=== PATIENT | male | born 1975 | race Caucasian/White ===

== ENCOUNTER 2025-01-15 22:50 | Emergency (ER) | payer OTHER, SELFPAY ==
[2025-01-15 23:03] VITALS: BP 147/89; PULSE 93; RESP 18; TEMP 36.2; O2SAT 100
--- NOTE | 2025-01-15 23:13 | ED.ALLEREA ---
HPI - Allergic Reaction General Chief complaint: Allergic Reaction Stated complaint: allergic reaction Time Seen by Provider: 01/15/25 23:13 Focused HPI: This is a 49 year old male that presents to the ER for allergic reaction. Reports he woke up this morning with some itching of his face. Reports it has gradually worsened throughout the day. He woke up from sleeping feeling like his face was burning. No known exposures GENERAL: Well-appearing, well-nourished, and in no acute distress. HEAD: Normocephalic, atraumatic. Redness of the face, swelling around the eyelids CHEST: Clear to auscultation. ?No respiratory distress. HEART: Regular rate and rhythm.? NEURO: ?Alert and oriented x3. Patient screened in triage and initial orders placed.? ?Additional care and disposition to be based upon?diagnostic testing and treatment. Related Data Allergies Allergy/AdvReac Type Severity Reaction Status Date / Time Penicillins Allergy Unknown Unknown Verified 01/15/25 23:06 Review of Systems Review of Systems: All systems reviewed & are unremarkable except as noted in HPI and below Exam Narrative: GENERAL: Well-appearing, well-nourished, and in no acute distress. HEAD: Normocephalic, atraumatic. EYES: EOMI. ENT: Nares clear, no rhinorrhea or epistaxis. Mucous membranes moist. Oropharynx without tonsillar hypertrophy exudate or other lesions. CHEST: Clear to auscultation. No respiratory distress. No wheezes rales or rhonchi HEART: Regular rate and rhythm. No murmur heard. Normal peripheral pulses. EXTREMITIES: Normal range of motion. No edema. SKIN: Warm, dry. Redness of the face, swelling around the eyelids NEURO: No focal deficits. Alert and oriented x3. PSYCH: Normal mood and affect Course Vital Signs Vital signs: Vital Signs Temperature 97.2 F L 01/15/25 23:03 Pulse Rate 93 01/15/25 23:03 Respiratory Rate 18 01/15/25 23:03 Blood Pressure 147/89 H 01/15/25 23:03 Pulse Oximetry 100 01/15/25 23:03 Oxygen Delivery Room Air 01/15/25 23:03 Temperature 97.2 F L 01/15/25 23:03 Pulse Rate 93 01/15/25 23:03 Respiratory Rate 18 01/15/25 23:03 Blood Pressure 147/89 H 01/15/25 23:03 Pulse Oximetry 100 01/15/25 23:03 Oxygen Delivery Room Air 01/15/25 23:03 MDM - Allergic Reaction MDM Narrative Medical decision making narrative: Patient presents the emergency department for itching, redness, swelling around the eyes and face. No swelling of the mouth or throat. No difficulty breathing or trouble swallowing. He was given Solu-Medrol, Pepcid, Benadryl with some improvement. Will be continued on steroid taper, antihistamines. Instructed to follow-up with his primary provider. He was given warnings to return to the ER Differential Diagnosis Differential diagnosis: Likely allergic reaction, angioedema, contact dermatitis, adverse reaction to drug, viral enanthem and urticaria Critical Care Time Critical Care Time Critical Care Time: No Discharge Plan Discharge Clinical Impression: Allergic reaction Qualifiers: Encounter type: initial encounter Qualified Code(s): T78.40XA - Allergy, unspecified, initial encounter Patient Disposition: Home Condition: Improved Instructions: General Allergic Reaction (ED) Additional Instructions: Return to the emergency department if you experience difficulty breathing, trouble swallowing, or any other symptoms that are concerning to you Take a Zyrtec and Claritin daily. (You may take Zyrtec twice daily if needed). Take steroid taper (Prednisone) as prescribed. Benadryl as needed for severe itching. Use non-scented/sensitive face wash/lotion Follow-up with your primary care doctor Patient Language: Kiswahili Prescriptions: New prednisone 10 mg tablet 10 mg PO DAILY Qty: 45 0RF Rx Instructions: 5 tabs daily for 3 days, 4 tabs daily for 3 days, 3 tabs daily for 3 days, 2 tabs daily for 3 days, 1 tab daily for 3 days Follow-up/Referrals: Yordan,MD Claus [Primary Care Provider] -
[2025-01-15] MEDS: FAMOTIDINE 20 MG/2 ML VIAL IV PUSH (23:27)
--- OUTSIDE RECORDS SUMMARY | 2025-01-15 23:46 | XMS_ITS | Data Portability ---
Author Organization [facility] DORCAS[facility]arda Jefferson Womack Address [address] [place] [place] [address] Care Team Providers Care Electronics Processor Name Role Phone SHAE FARR Primary Care Provider [phone] Assessment Encounter Date Assessment Date Assessment LastModified by Organization Details LastModified Time 06/03/2024 06/03/2024 Kenalog 40 mg IM. Prednisone tapering dose over the next week. Blood work to be obtained. Obtain colonoscopy report follow up 6 months sooner if rash does not go away [email or web address] Not available 06/07/2024 20:24:44 10/06/2024 10/06/2024 orthopedic referral. as an aside he was is taking testosterone from the private pay clinic and they are doing all of the monitoring Not available 10/12/2024 12:58:57 Plan of Treatment Reminders Order Date Submit Date Provider Last Modified By Organization Details Last Modified Time Details Appointments ANY 15 2025 09:00A Galo Farr MD Not available Not available Not available Lab PSA, total, serum or plasma 2023 024 ED [facility], [place] [facility] [facility], [address], [place], [address], 06/04/2024 13:12:27 lipid panel, serum 2023 024 ED [facility], [address] [facility], [address], [place], [address], 06/04/2024 13:12:22 CMP, serum or plasma 2023 024 ED [facility], [address] [facility] [address], [address], [place], [address], 06/04/2024 13:12:24 CBC w/ auto diff 2023 024 [place] [facility], [address] [facility], [address], [place], [address], 06/04/2024 13:12:25 Referral orthopedi c surgeon referral - No imaging on file please call pt to set up apt thank you. 2024 chintan Bennett MD, [address], [address], [place], [address], 12/31/2024 14:29:47 Procedures None recorded. Surgeries None recorded. Imaging None recorded. Medication Orders prednison e 20 mg tablet 2023 [email or web address] [facility] #[id number], [address] [facility], [place], [address], 06/03/2024 13:06:38 Kenalog 40 mg/mL suspensio n for injection 2023 024 [email or web address] [facility] #[id number], [address] [facility], [place], [address], 06/03/2024 16:39:48 Patient TargetsNo targets recorded. Patient Instructions Encounter Date Encounter Id Patient Instructions Last Modified By Organization Details Last Modified Time 10/06/2024 [id number] A healthy lifestyle: care instructions [email or web address] Not available 10/06/2024 17:54:10 Reason for Referral Orthopedic Surgeon Referral for Pain of left shoulder joint No imaging on file please call pt to set up apt thank you. Referring Physician: Shae Farr, Internal Medicine, Encounter Date: 10/06/2024 Referring Physician: Shae Farr, Internal Medicine, Encounter Date: 01/14/2025 Results Created Date Observation Date Name Description Value Unit Range Abnormal Flag Note LastModifiedBy Organization Detail LastModifiedTime 06/03/20 24 06/04/2024 LIPID PANEL cholesterol, total 212 mg/dL 100-19 9 above high normal Not Available [facility] ([facility]) [address] [facility] [place], [address], 06/04/2024 13:12:22 06/03/20 24 06/04/2024 LIPID PANEL triglyceride s 76 mg/dL 0-149 Not Available [facility] ([facility]) [address] [facility] [place], [address], 06/04/2024 13:12:22 06/03/20 24 06/04/2024 LIPID PANEL HDL cholesterol 54 mg/dL >39 Not Available [facility] ([facility]) [address] [facility] [place], [address], 06/04/2024 13:12:22 06/03/20 24 06/04/2024 LIPID PANEL VLDL cholesterol booker 14 mg/dL 5-40 Not Available [facility] ([facility]) [address] [facility] [place], [address], 06/04/2024 13:12:22 06/03/20 24 06/04/2024 LIPID PANEL LDL chol calc ([facility]) 144 mg/dL 0-99 above high normal Not Available [facility] ([facility]) [address] [facility] [place], [address], 06/04/2024 13:12:22 06/03/20 24 06/04/2024 COMP. METAB OLIC PANEL (14) glucose 88 mg/dL 70-99 Not Available [facility] ([facility]) [address] [facility] [place], [address], 06/04/2024 13:12:23 06/03/20 24 06/04/2024 COMP. METAB OLIC PANEL (14) BUN 11 mg/dL 6-24 Not Available [facility] ([facility]) [address] [place], [address], 06/04/2024 13:12:23 06/03/20 24 06/04/2024 COMP. METAB OLIC PANEL (14) creatinine 1.31 mg/dL 0.76-1 .27 above high normal Not Available [facility] ([facility]) [address] [facility], [place], [address], 06/04/2024 13:12:23 06/03/20 24 06/04/2024 COMP. METAB OLIC PANEL (14) eGFR 67 mL/mi n/1.7 3 >59 Not Available [facility] ([facility]) [address] [facility], [place], [address], 06/04/2024 13:12:23 06/03/20 24 06/04/2024 COMP. METAB OLIC PANEL (14) BUN/creatini ne ratio 8 9-20 below low normal Not Available [facility] ([facility]) [address] [facility], [place], [address], 06/04/2024 13:12:23 06/03/20 24 06/04/2024 COMP. METAB OLIC PANEL (14) sodium 140 mmol/ L 134-14 4 Not Available [facility] ([facility]) [address] [facility], [place], [address], 06/04/2024 13:12:23 06/03/20 24 06/04/2024 COMP. METAB OLIC PANEL (14) potassium 4.6 mmol/ L 3.5-5. 2 Not Available [facility] ([facility]) [address] [facility], [place], [address], 06/04/2024 13:12:23 06/03/20 24 06/04/2024 COMP. METAB OLIC PANEL (14) chloride 103 mmol/ L 96-106 Not Available [facility] ([facility]) [address] [facility], [place], [address], 06/04/2024 13:12:23 06/03/20 24 06/04/2024 COMP. METAB OLIC PANEL (14) carbon dioxide, total 21 mmol/ L 20-29 Not Available [facility] ([facility]) [address] [facility], [place], [address], 06/04/2024 13:12:23 06/03/20 24 06/04/2024 COMP. METAB OLIC PANEL (14) calcium 9.3 mg/dL 8.7-10 .2 Not Available [facility] ([facility]) [address] [place], [address], 06/04/2024 13:12:23 06/03/20 24 06/04/2024 COMP. METAB OLIC PANEL (14) protein, total 6.9 g/dL 6.0-8. 5 Not Available [facility] ([facility]) [address] [place], [address], 06/04/2024 13:12:23 06/03/20 24 06/04/2024 COMP. METAB OLIC PANEL (14) albumin 4.4 g/dL 4.1-5. 1 Not Available [facility] ([facility]) [address] [place], [address], 06/04/2024 13:12:23 06/03/20 24 06/04/2024 COMP. METAB OLIC PANEL (14) globulin, total 2.5 g/dL 1.5-4. 5 Not Available [facility] ([facility]) [address] [place], [address], 06/04/2024 13:12:23 06/03/20 24 06/04/2024 COMP. METAB OLIC PANEL (14) bilirubin, total 0.9 mg/dL 0.0-1. 2 Not Available [facility] ([facility]) [address] [place], [address], 06/04/2024 13:12:23 06/03/20 24 06/04/2024 COMP. METAB OLIC PANEL (14) alkaline phosphatase 70 IU/L 44-121 Not Available [facility] ([facility]) [address] [place], [address], 06/04/2024 13:12:23 06/03/20 24 06/04/2024 COMP. METAB OLIC PANEL (14) AST (SGOT) 27 IU/L 0-40 Not Available [facility] ([facility]) [address] [place], [address], 06/04/2024 13:12:23 06/03/20 24 06/04/2024 COMP. METAB OLIC PANEL (14) ALT (SGPT) 38 IU/L 0-44 Not Available [facility] ([facility]) [address] [place], [address], 06/04/2024 13:12:23 06/03/20 24 06/04/2024 CBC WITH DIFFE RENTI AL/PL ATELE T WBC 4.6 x10e3 /uL 3.4-10 .8 Nikki ified by repea t krzysztof sis Eff ectiv e Decem chantel 2023 profi [id number] WBC will be made* * non-o rdera ble as a stand -jian e order code. Not Available [facility] ([facility]) [address] [facility], [place], [address], 06/04/2024 13:12:25 06/03/20 24 06/04/2024 CBC WITH DIFFE RENTI AL/PL ATELE T RBC 6.49 x10e6 /uL 4.14-5 .80 above high normal Not Available [facility] ([facility]) [address] [place], [address], 06/04/2024 13:12:25 06/03/20 24 06/04/2024 CBC WITH DIFFE RENTI AL/PL ATELE T hemoglobin 20.3 g/dL 13.0-1 7.7 alert high Remov al of plasm a from EDTA tube will resul t in spuri ously eleva ailyn CBC resul ts. Redra w and repea t if resul ts do not corre late with patie nt's clini booker condi tion. Not Available [facility] ([facility]) [address] [facility], [place], [address], 06/04/2024 13:12:25 06/03/20 24 06/04/2024 CBC WITH DIFFE RENTI AL/PL ATELE T hematocrit 59.6 % 37.5-5 1.0 above high normal Not Available [facility] ([facility]) [address] [facility], [place], [address], 06/04/2024 13:12:25 06/03/20 24 06/04/2024 CBC WITH DIFFE RENTI AL/PL ATELE T MCV 92 fL 79-97 Not Available [facility] ([facility]) [address] [facility], [place], [address], 06/04/2024 13:12:25 06/03/20 24 06/04/2024 CBC WITH DIFFE RENTI AL/PL ATELE T MCH 31.3 pg 26.6-3 3.0 Not Available [facility] ([facility]) [address] [facility], [place], [address], 06/04/2024 13:12:25 06/03/20 24 06/04/2024 CBC WITH DIFFE RENTI AL/PL ATELE T MCHC 34.1 g/dL 31.5-3 5.7 Not Available [facility] ([facility]) [address] [place], [address], 06/04/2024 13:12:25 06/03/20 24 06/04/2024 CBC WITH DIFFE RENTI AL/PL ATELE T RDW 12.9 % 11.6-1 5.4 Not Available [facility] ([facility]) [address] [place], [address], 06/04/2024 13:12:25 06/03/20 24 06/04/2024 CBC WITH DIFFE RENTI AL/PL ATELE T platelets 256 x10e3 /uL 150-45 0 Not Available [facility] ([facility]) [address] [facility] [address], [place], [address], 06/04/2024 13:12:25 06/03/20 24 06/04/2024 CBC WITH DIFFE RENTI AL/PL ATELE T neutrophils 54 % notest ab. Not Available [facility] ([facility]) [address] [facility], [place], [address], 06/04/2024 13:12:25 06/03/20 24 06/04/2024 CBC WITH DIFFE RENTI AL/PL ATELE T lymphs 30 % notest ab. Not Available [facility] ([facility]) [address] [facility], [place], [address], 06/04/2024 13:12:25 06/03/20 24 06/04/2024 CBC WITH DIFFE RENTI AL/PL ATELE T monocytes 11 % notest ab. Not Available [facility] ([facility]) [address] [facility], [place], [address], 06/04/2024 13:12:25 06/03/20 24 06/04/2024 CBC WITH DIFFE RENTI AL/PL ATELE T eos 4 % notest ab. Not Available [facility] ([facility]) [address] [facility], [place], [address], 06/04/2024 13:12:25 06/03/20 24 06/04/2024 CBC WITH DIFFE RENTI AL/PL ATELE T basos 1 % notest ab. Not Available [facility] ([facility]) [address] [facility], [place], [address], 06/04/2024 13:12:25 06/03/20 24 06/04/2024 CBC WITH DIFFE RENTI AL/PL ATELE T neutrophils (absolute) 2.4 x10e3 /uL 1.4-7. 0 Not Available [facility] ([facility]) [address] [facility], [place], [address], 06/04/2024 13:12:25 06/03/20 24 06/04/2024 CBC WITH DIFFE RENTI AL/PL ATELE T lymphs (absolute) 1.4 x10e3 /uL 0.7-3. 1 Not Available [facility] ([facility]) [address] [facility], [place], [address], 06/04/2024 13:12:25 06/03/20 24 06/04/2024 CBC WITH DIFFE RENTI AL/PL ATELE T monocytes(ab solute) 0.5 x10e3 /uL 0.1-0. 9 Not Available [facility] ([facility]) [address] [facility], [place], [address], 06/04/2024 13:12:25 06/03/20 24 06/04/2024 CBC WITH DIFFE RENTI AL/PL ATELE T eos (absolute) 0.2 x10e3 /uL 0.0-0. 4 Not Available [facility] ([facility]) [address] [facility], [place], [address], 06/04/2024 13:12:25 06/03/20 24 06/04/2024 CBC WITH DIFFE RENTI AL/PL ATELE T baso (absolute) 0.0 x10e3 /uL 0.0-0. 2 Not Available [facility] ([facility]) [address] [facility], [place], [address], 06/04/2024 13:12:25 06/03/20 24 06/04/2024 CBC WITH DIFFE RENTI AL/PL ATELE T immature granulocytes 0 % notest ab. Not Available [facility] ([facility]) [address] [facility], [place], [address], 06/04/2024 13:12:25 06/03/20 24 06/04/2024 CBC WITH DIFFE RENTI AL/PL ATELE T immature grans (abs) 0.0 x10e3 /uL 0.0-0. 1 Not Available [facility] ([facility]) [address] [facility], [place], [address], 06/04/2024 13:12:25 06/03/20 24 06/04/2024 PROST ATE-S PECIF IC AG prostate specific Ag 2.5 NG/mL 0.0-4. 0 Dylon ECLIA metho dolog y. Accor ding to the Ameri can [employer] g[employer] iatio n, Serum PSA shoul d decre ase and remai n at undet ectab le level s after radic al prost atect lg. The AUA defin es bioch emica l recur rence as an initi al PSA value 0.2 ng/mL or great er follo wed by a subse quent confi rmato ry PSA value 0.2 ng/mL or great er. Value s obtai keshawn with diffe rent assay metho ds or kits canno t be used inter levin eably . Resul ts canno t be inter prete d as absol three affiliated evide nce of the prese nce or absen ce of gloria sosa se. Not Available [facility] ([facility]) [address] [facility], [place], [address], 06/04/2024 13:12:26 06/09/20 24 06/10/2024 CBC WITH DIFFE RENTI AL/PL ATELE T WBC 9.3 x10e3 /uL 3.4-10 .8 Not Available [facility] ([facility]) [address] [facility], [place], [address], 06/10/2024 06:16:26 06/09/20 24 06/10/2024 CBC WITH DIFFE RENTI AL/PL ATELE T RBC 6.26 x10e6 /uL 4.14-5 .80 above high normal Not Available [facility] ([facility]) [address] [facility], [place], [address], 06/10/2024 06:16:26 06/09/20 24 06/10/2024 CBC WITH DIFFE RENTI AL/PL ATELE T hemoglobin 19.1 g/dL 13.0-1 7.7 above high normal Not Available [facility] ([facility]) [address] [place], [address], 06/10/2024 06:16:26 06/09/20 24 06/10/2024 CBC WITH DIFFE RENTI AL/PL ATELE T hematocrit 58.1 % 37.5-5 1.0 above high normal Not Available [facility] ([facility]) [address] [place], [address], 06/10/2024 06:16:26 06/09/20 24 06/10/2024 CBC WITH DIFFE RENTI AL/PL ATELE T MCV 93 fL 79-97 Not Available [facility] ([facility]) [address] [place], [address], 06/10/2024 06:16:26 06/09/20 24 06/10/2024 CBC WITH DIFFE RENTI AL/PL ATELE T MCH 30.5 pg 26.6-3 3.0 Not Available [facility] ([facility]) [address] [place], [address], 06/10/2024 06:16:26 06/09/20 24 06/10/2024 CBC WITH DIFFE RENTI AL/PL ATELE T MCHC 32.9 g/dL 31.5-3 5.7 Not Available [facility] ([facility]) [address] [place], [address], 06/10/2024 06:16:26 06/09/20 24 06/10/2024 CBC WITH DIFFE RENTI AL/PL ATELE T RDW 12.6 % 11.6-1 5.4 Not Available [facility] ([facility]) [address] [place], [address], 06/10/2024 06:16:26 06/09/20 24 06/10/2024 CBC WITH DIFFE RENTI AL/PL ATELE T platelets 277 x10e3 /uL 150-45 0 Not Available [facility] ([facility]) [address] [facility], [place], [address], 06/10/2024 06:16:26 06/09/20 24 06/10/2024 CBC WITH DIFFE RENTI AL/PL ATELE T neutrophils 70 % notest ab. Not Available [facility] ([facility]) [address] [facility], [place], [address], 06/10/2024 06:16:26 06/09/20 24 06/10/2024 CBC WITH DIFFE RENTI AL/PL ATELE T lymphs 20 % notest ab. Not Available [facility] ([facility]) [address] [facility], [place], [address], 06/10/2024 06:16:26 06/09/20 24 06/10/2024 CBC WITH DIFFE RENTI AL/PL ATELE T monocytes 7 % notest ab. Not Available [facility] ([facility]) [address] [facility], [place], [address], 06/10/2024 06:16:26 06/09/20 24 06/10/2024 CBC WITH DIFFE RENTI AL/PL ATELE T eos 1 % notest ab. Not Available [facility] ([facility]) [address] [facility], [place], [address], 06/10/2024 06:16:26 06/09/20 24 06/10/2024 CBC WITH DIFFE RENTI AL/PL ATELE T basos 0 % notest ab. Not Available [facility] ([facility]) [address] [facility], [place], [address], 06/10/2024 06:16:26 06/09/20 24 06/10/2024 CBC WITH DIFFE RENTI AL/PL ATELE T neutrophils (absolute) 6.6 x10e3 /uL 1.4-7. 0 Not Available [facility] ([facility]) [address] [facility], [place], [address], 06/10/2024 06:16:26 06/09/20 24 06/10/2024 CBC WITH DIFFE RENTI AL/PL ATELE T lymphs (absolute) 1.9 x10e3 /uL 0.7-3. 1 Not Available [facility] ([facility]) [address] [facility], [place], [address], 06/10/2024 06:16:26 06/09/20 24 06/10/2024 CBC WITH DIFFE RENTI AL/PL ATELE T monocytes(ab solute) 0.6 x10e3 /uL 0.1-0. 9 Not Available [facility] ([facility]) [address] [facility], [place], [address], 06/10/2024 06:16:26 06/09/20 24 06/10/2024 CBC WITH DIFFE RENTI AL/PL ATELE T eos (absolute) 0.1 x10e3 /uL 0.0-0. 4 Not Available [facility] ([facility]) [address] [facility], [place], [address], 06/10/2024 06:16:26 06/09/20 24 06/10/2024 CBC WITH DIFFE RENTI AL/PL ATELE T baso (absolute) 0.0 x10e3 /uL 0.0-0. 2 Not Available [facility] ([facility]) [address] [place], [address], 06/10/2024 06:16:26 06/09/20 24 06/10/2024 CBC WITH DIFFE RENTI AL/PL ATELE T immature granulocytes 2 % notest ab. Not Available [facility] ([facility]) [address] [place], [address], 06/10/2024 06:16:26 06/09/20 24 06/10/2024 CBC WITH DIFFE RENTI AL/PL ATELE T immature grans (abs) 0.2 x10e3 /uL 0.0-0. 1 above high normal (An eleva ailyn perce ntage of Immat ure Granu locyt es has not been found to be clini jack signi fican t as a sole clini booker predi ctor of disea se. Does NOT inclu de bands or blast cells . Pregn daja assoc iated physi ologi booker leuko cytos is may also show incre ased immat ure granu locyt es witho ut clini booker signi fican ce.) Not Available [facility] ([facility]) [address] [facility], [place], [address], 06/10/2024 06:16:26 06/23/20 24 06/24/2024 CBC WITH DIFFE RENTI AL/PL ATELE T WBC 5.4 x10e3 /uL 3.4-10 .8 Not Available [facility] ([facility]) [address] [facility], [place], [address], 06/24/2024 07:09:29 06/23/20 24 06/24/2024 CBC WITH DIFFE RENTI AL/PL ATELE T RBC 6.41 x10e6 /uL 4.14-5 .80 above high normal Not Available [facility] ([facility]) [address] [facility], [place], [address], 06/24/2024 07:09:29 06/23/20 24 06/24/2024 CBC WITH DIFFE RENTI AL/PL ATELE T hemoglobin 19.9 g/dL 13.0-1 7.7 above high normal Nikki ified by repea t krzysztof sis Remov al of plasm a from EDTA tube will resul t in spuri ously eleva ailyn CBC resul ts. Redra w and repea t if resul ts do not corre late with patie nt's clini booker condi tion. Not Available [facility] ([facility]) [address] [facility], [place], [address], 06/24/2024 07:09:29 06/23/20 24 06/24/2024 CBC WITH DIFFE RENTI AL/PL ATELE T hematocrit 58.9 % 37.5-5 1.0 above high normal Not Available [facility] ([facility]) [address] [facility], [place], [address], 06/24/2024 07:09:29 06/23/20 24 06/24/2024 CBC WITH DIFFE RENTI AL/PL ATELE T MCV 92 fL 79-97 Not Available [facility] ([facility]) [address] [facility], [place], [address], 06/24/2024 07:09:29 06/23/20 24 06/24/2024 CBC WITH DIFFE RENTI AL/PL ATELE T MCH 31.0 pg 26.6-3 3.0 Not Available [facility] ([facility]) [address] [facility], [place], [address], 06/24/2024 07:09:29 06/23/20 24 06/24/2024 CBC WITH DIFFE RENTI AL/PL ATELE T MCHC 33.8 g/dL 31.5-3 5.7 Not Available [facility] ([facility]) [address] [facility], [place], [address], 06/24/2024 07:09:29 06/23/20 24 06/24/2024 CBC WITH DIFFE RENTI AL/PL ATELE T RDW 12.8 % 11.6-1 5.4 Not Available [facility] ([facility]) [address] [facility], [place], [address], 06/24/2024 07:09:29 06/23/20 24 06/24/2024 CBC WITH DIFFE RENTI AL/PL ATELE T platelets 247 x10e3 /uL 150-45 0 Not Available [facility] ([facility]) [address] [facility], [place], [address], 06/24/2024 07:09:29 06/23/20 24 06/24/2024 CBC WITH DIFFE RENTI AL/PL ATELE T neutrophils 68 % notest ab. Not Available [facility] ([facility]) [address] [facility], [place], [address], 06/24/2024 07:09:29 06/23/20 24 06/24/2024 CBC WITH DIFFE RENTI AL/PL ATELE T lymphs 19 % notest ab. Not Available [facility] ([facility]) [address] [facility], [place], [address], 06/24/2024 07:09:29 06/23/20 24 06/24/2024 CBC WITH DIFFE RENTI AL/PL ATELE T monocytes 10 % notest ab. Not Available [facility] ([facility]) [address] [facility], [place], [address], 06/24/2024 07:09:29 06/23/20 24 06/24/2024 CBC WITH DIFFE RENTI AL/PL ATELE T eos 1 % notest ab. Not Available [facility] ([facility]) [address] [facility], [place], [address], 06/24/2024 07:09:29 06/23/20 24 06/24/2024 CBC WITH DIFFE RENTI AL/PL ATELE T basos 1 % notest ab. Not Available [facility] ([facility]) [address] [facility], [place], [address], 06/24/2024 07:09:29 06/23/20 24 06/24/2024 CBC WITH DIFFE RENTI AL/PL ATELE T neutrophils (absolute) 3.7 x10e3 /uL 1.4-7. 0 Not Available [facility] ([facility]) [address] [facility], [place], [address], 06/24/2024 07:09:29 06/23/20 24 06/24/2024 CBC WITH DIFFE RENTI AL/PL ATELE T lymphs (absolute) 1.1 x10e3 /uL 0.7-3. 1 Not Available [facility] ([facility]) [address] [facility], [place], [address], 06/24/2024 07:09:29 06/23/20 24 06/24/2024 CBC WITH DIFFE RENTI AL/PL ATELE T monocytes(ab solute) 0.5 x10e3 /uL 0.1-0. 9 Not Available [facility] ([facility]) [address] [facility], [place], [address], 06/24/2024 07:09:29 06/23/20 24 06/24/2024 CBC WITH DIFFE RENTI AL/PL ATELE T eos (absolute) 0.0 x10e3 /uL 0.0-0. 4 Not Available [facility] ([facility]) [address] [facility], [place], [address], 06/24/2024 07:09:29 06/23/20 24 06/24/2024 CBC WITH DIFFE RENTI AL/PL ATELE T baso (absolute) 0.0 x10e3 /uL 0.0-0. 2 Not Available [facility] ([facility]) [address] [facility], [place], [address], 06/24/2024 07:09:29 06/23/20 24 06/24/2024 CBC WITH DIFFE RENTI AL/PL ATELE T immature granulocytes 1 % notest ab. Not Available [facility] ([facility]) [address] [facility], [place], [address], 06/24/2024 07:09:29 06/23/20 24 06/24/2024 CBC WITH DIFFE RENTI AL/PL ATELE T immature grans (abs) 0.0 x10e3 /uL 0.0-0. 1 Not Available [facility] ([facility]) [address] [facility], [place], [address], 06/24/2024 07:09:29 07/01/2007/02/2024 CBC WITH DIFFE RENTI AL/PL ATELE T WBC 5.4 x10e3 /uL 3.4-10 .8 Not Available [facility] ([facility]) [address], [place], [address], 07/02/2024 07:07:21 07/01/20 24 07/02/2024 CBC WITH DIFFE RENTI AL/PL ATELE T RBC 5.90 x10e6 /uL 4.14-5 .80 above high normal Not Available [facility] ([facility]) [address] [facility] [facility] [address], [place], [address], 07/02/2024 07:07:21 07/01/20 24 07/02/2024 CBC WITH DIFFE RENTI AL/PL ATELE T hemoglobin 18.3 g/dL 13.0-1 7.7 above high normal Not Available [facility] ([facility]) [address], [place], [address], 07/02/2024 07:07:21 07/01/20 24 07/02/2024 CBC WITH DIFFE RENTI AL/PL ATELE T hematocrit 55.4 % 37.5-5 1.0 above high normal Not Available [facility] ([facility]) [address] [facility] [address], [place], [address], 07/02/2024 07:07:21 07/01/20 24 07/02/2024 CBC WITH DIFFE RENTI AL/PL ATELE T MCV 94 fL 79-97 Not Available [facility] ([facility]) [address] [facility] [address], [place], [address], 07/02/2024 07:07:21 07/01/20 24 07/02/2024 CBC WITH DIFFE RENTI AL/PL ATELE T MCH 31.0 pg 26.6-3 3.0 Not Available [facility] ([facility]) [address] [facility], [place], [address], 07/02/2024 07:07:21 07/01/20 24 07/02/2024 CBC WITH DIFFE RENTI AL/PL ATELE T MCHC 33.0 g/dL 31.5-3 5.7 Not Available [facility] ([facility]) [address] [facility], [place], [address], 07/02/2024 07:07:21 07/01/20 24 07/02/2024 CBC WITH DIFFE RENTI AL/PL ATELE T RDW 12.4 % 11.6-1 5.4 Not Available [facility] ([facility]) [address] [place], [address], 07/02/2024 07:07:21 07/01/20 24 07/02/2024 CBC WITH DIFFE RENTI AL/PL ATELE T platelets 246 x10e3 /uL 150-45 0 Not Available [facility] ([facility]) [address] [facility], [place], [address], 07/02/2024 07:07:21 07/01/20 24 07/02/2024 CBC WITH DIFFE RENTI AL/PL ATELE T neutrophils 57 % notest ab. Not Available [facility] ([facility]) [address] [place], [address], 07/02/2024 07:07:21 07/01/20 24 07/02/2024 CBC WITH DIFFE RENTI AL/PL ATELE T lymphs 26 % notest ab. Not Available [facility] ([facility]) [address] [place], [address], 07/02/2024 07:07:21 07/01/20 24 07/02/2024 CBC WITH DIFFE RENTI AL/PL ATELE T monocytes 10 % notest ab. Not Available [facility] ([facility]) [address] [facility] [place], [address], 07/02/2024 07:07:21 07/01/20 24 07/02/2024 CBC WITH DIFFE RENTI AL/PL ATELE T eos 6 % notest ab. Not Available [facility] ([facility]) [address] [facility], [place], [address], 07/02/2024 07:07:21 07/01/20 24 07/02/2024 CBC WITH DIFFE RENTI AL/PL ATELE T basos 1 % notest ab. Not Available [facility] ([facility]) [address] [facility], [place], [address], 07/02/2024 07:07:21 07/01/20 24 07/02/2024 CBC WITH DIFFE RENTI AL/PL ATELE T neutrophils (absolute) 3.1 x10e3 /uL 1.4-7. 0 Not Available [facility] ([facility]) [address] [facility], [place], [address], 07/02/2024 07:07:21 07/01/20 24 07/02/2024 CBC WITH DIFFE RENTI AL/PL ATELE T lymphs (absolute) 1.4 x10e3 /uL 0.7-3. 1 Not Available [facility] ([facility]) [address] [facility], [place], [address], 07/02/2024 07:07:21 07/01/20 24 07/02/2024 CBC WITH DIFFE RENTI AL/PL ATELE T monocytes(ab solute) 0.5 x10e3 /uL 0.1-0. 9 Not Available [facility] ([facility]) [address] [facility], [place], [address], 07/02/2024 07:07:21 07/01/20 24 07/02/2024 CBC WITH DIFFE RENTI AL/PL ATELE T eos (absolute) 0.3 x10e3 /uL 0.0-0. 4 Not Available [facility] ([facility]) [address] [facility], [place], [address], 07/02/2024 07:07:21 07/01/20 24 07/02/2024 CBC WITH DIFFE RENTI AL/PL ATELE T baso (absolute) 0.0 x10e3 /uL 0.0-0. 2 Not Available [facility] ([facility]) [address] [facility], [place], [address], 07/02/2024 07:07:21 07/01/20 24 07/02/2024 CBC WITH DIFFE RENTI AL/PL ATELE T immature granulocytes 0 % notest ab. Not Available [facility] ([facility]) [address] [facility], [place], [address], 07/02/2024 07:07:21 07/01/20 24 07/02/2024 CBC WITH DIFFE RENTI AL/PL ATELE T immature grans (abs) 0.0 x10e3 /uL 0.0-0. 1 Not Available [facility] ([facility]) [address] [facility], [place], [address], 07/02/2024 07:07:21 07/07/20 24 07/08/2024 CBC WITH DIFFE RENTI AL/PL ATELE T WBC 4.0 x10e3 /uL 3.4-10 .8 Not Available [facility] ([facility]) [address] [facility], [place], [address], 07/08/2024 07:07:46 07/07/20 24 07/08/2024 CBC WITH DIFFE RENTI AL/PL ATELE T RBC 5.98 x10e6 /uL 4.14-5 .80 above high normal Not Available [facility] ([facility]) [address] [facility], [place], [address], 07/08/2024 07:07:46 07/07/20 24 07/08/2024 CBC WITH DIFFE RENTI AL/PL ATELE T hemoglobin 18.8 g/dL 13.0-1 7.7 above high normal Not Available [facility] ([facility]) [address] [facility] [address], [place], [address], 07/08/2024 07:07:46 07/07/20 24 07/08/2024 CBC WITH DIFFE RENTI AL/PL ATELE T hematocrit 54.5 % 37.5-5 1.0 above high normal Not Available [facility] ([facility]) [address] [facility] [address], [place], [address], 07/08/2024 07:07:46 07/07/20 24 07/08/2024 CBC WITH DIFFE RENTI AL/PL ATELE T MCV 91 fL 79-97 Not Available [facility] ([facility]) [address] [facility], [place], [address], 07/08/2024 07:07:46 07/07/20 24 07/08/2024 CBC WITH DIFFE RENTI AL/PL ATELE T MCH 31.4 pg 26.6-3 3.0 Not Available [facility] ([facility]) [address] [place], [address], 07/08/2024 07:07:46 07/07/20 24 07/08/2024 CBC WITH DIFFE RENTI AL/PL ATELE T MCHC 34.5 g/dL 31.5-3 5.7 Not Available [facility] ([facility]) [address] [place], [address], 07/08/2024 07:07:46 07/07/20 24 07/08/2024 CBC WITH DIFFE RENTI AL/PL ATELE T RDW 12.4 % 11.6-1 5.4 Not Available [facility] ([facility]) [address] [place], [address], 07/08/2024 07:07:46 07/07/20 24 07/08/2024 CBC WITH DIFFE RENTI AL/PL ATELE T platelets 270 x10e3 /uL 150-45 0 Not Available [facility] ([facility]) [address] [facility], [place], [address], 07/08/2024 07:07:46 07/07/20 24 07/08/2024 CBC WITH DIFFE RENTI AL/PL ATELE T neutrophils 50 % notest ab. Not Available [facility] ([facility]) [address] [facility], [place], [address], 07/08/2024 07:07:46 07/07/20 24 07/08/2024 CBC WITH DIFFE RENTI AL/PL ATELE T lymphs 36 % notest ab. Not Available [facility] ([facility]) [address] [facility], [place], [address], 07/08/2024 07:07:46 07/07/20 24 07/08/2024 CBC WITH DIFFE RENTI AL/PL ATELE T monocytes 11 % notest ab. Not Available [facility] ([facility]) [address] [facility], [place], [address], 07/08/2024 07:07:46 07/07/20 24 07/08/2024 CBC WITH DIFFE RENTI AL/PL ATELE T eos 2 % notest ab. Not Available [facility] ([facility]) [address] [facility], [place], [address], 07/08/2024 07:07:46 07/07/20 24 07/08/2024 CBC WITH DIFFE RENTI AL/PL ATELE T basos 1 % notest ab. Not Available [facility] ([facility]) [address] [facility], [place], [address], 07/08/2024 07:07:46 07/07/20 24 07/08/2024 CBC WITH DIFFE RENTI AL/PL ATELE T neutrophils (absolute) 2.0 x10e3 /uL 1.4-7. 0 Not Available [facility] ([facility]) [address] [facility], [place], [address], 07/08/2024 07:07:46 07/07/20 24 07/08/2024 CBC WITH DIFFE RENTI AL/PL ATELE T lymphs (absolute) 1.4 x10e3 /uL 0.7-3. 1 Not Available [facility] ([facility]) [address] [facility], [place], [address], 07/08/2024 07:07:46 07/07/20 24 07/08/2024 CBC WITH DIFFE RENTI AL/PL ATELE T monocytes(ab solute) 0.5 x10e3 /uL 0.1-0. 9 Not Available [facility] ([facility]) [address] [facility], [place], [address], 07/08/2024 07:07:46 07/07/20 24 07/08/2024 CBC WITH DIFFE RENTI AL/PL ATELE T eos (absolute) 0.1 x10e3 /uL 0.0-0. 4 Not Available [facility] ([facility]) [address] [facility], [place], [address], 07/08/2024 07:07:46 07/07/20 24 07/08/2024 CBC WITH DIFFE RENTI AL/PL ATELE T baso (absolute) 0.0 x10e3 /uL 0.0-0. 2 Not Available [facility] ([facility]) [address] [facility], [place], [address], 07/08/2024 07:07:46 07/07/20 24 07/08/2024 CBC WITH DIFFE RENTI AL/PL ATELE T immature granulocytes 0 % notest ab. Not Available [facility] ([facility]) [address] [facility], [place], [address], 07/08/2024 07:07:46 07/07/20 24 07/08/2024 CBC WITH DIFFE RENTI AL/PL ATELE T immature grans (abs) 0.0 x10e3 /uL 0.0-0. 1 Not Available [facility] ([facility]) [address] [facility] [address], [place], [address], 07/08/2024 07:07:46 Result Notes None recorded. Problems Name Problem SNOMED Code Status Onset Date Resolution Date Notes Provider Name and Address Organization Details Recorded Time Eruption 842445436 Active 2023 TING [place], [place] - [facility] 4 13:04:52 Adult health examination Active 2023 TING [place], [place] [facility] 4 13:04:53 Screening for malignant neoplasm of prostate Active 2023 Dmitry Lee MA null, [place] - [facility] 4 13:04:56 Hemorrhoids 61736682 Active 2023 Shae Farr MD Attn: [address] [place], [address], [place] [facility] 4 20:24:55 Contact dermatitis 32342433 Active 2023 Shae Farr MD Attn: [address] [place], [address], [place] [facility] 4 20:24:56 Problem Notes None recorded. Medical Equipment None Reported. Allergies Allergen ID Allergen Name Allergen Category Reaction Reaction Severity Criticality Documentation Date Start Date Code Code System Note Provider Name and Address Organization Details Recorded Time 18661209 Product containin g penicilli n (product) medicatio n other Not available low 10/06/2024 80969 5275 SNOMED Had it as an infan t and doesn 't remem chantel Rosalva Meneses MA null, [place] - [facility] 5 14:03:23 Medications Name Sig Start Date Stop Date Status Note LastModified by Organization Details LastModified Time hydrocorti sone 150mg suppositor y INSERT ONE SUPPOSITO RY RECTALLY ONCE OR TWICE A DAY INCLUDING BEFORE BED active Not Available Not Available No t Available ondansetro n HCl 8 mg tablet Take 1 tablet by mouth every 8 hours as needed for nausea. active Not Available Not Available No t Available prednisone 20 mg tablet Take 2 tablets every day by oral route for 5 days. active Not Available Not Available No t Available ketorolac 10 mg tablet Take 1 tablet by mouth every 6 hours with food as needed for pain. Begin day of surgery. Stop other NSAIDs while taking this medicatio n. active Not Available Not Available No t Available Kenalog 40 mg/mL suspension for injection Take 1 mL by injection route. 2023 active Manufactu rer is [employer] Not Available Not Available Not Available hydrocodon e 7.5 mg-acetami nophen 325 mg tablet Take 1-2 tablets by mouth every 4-6 hours as needed for pain. active Not Available Not Available No t Available testostero ne 0.5mg weekly active Not Available Not Available No t Available BinaxNOW COVID-19 Ag Self Test kit TEST DIRECTED TODAY active Not Available Not Available No t Available Clenpiq 10 mg-3.5 gram-12 gram/175 mL oral solution FOLLOW THE INSTRUCTI ON SHEET GIVEN BY THE DRS OFFICE. active Not Available Not Available No t Available Vitals Date Recorded Body height Body mass index (BMI) Body weight Heart rate Oxygen saturation Oxygen saturation in Arterial blood by Pulse oximetry Systolic And Diastolic Provider Name and Address Organization Details Last Updated DateTime 5 182.88 cm 30.3 kg/m2 709931. 46 g 100 /min 98 % 98 % 132/70 mm[Hg] Rosalva Meneses [place] - [facility] 5 14:05:52 Date Recorded Body height Body mass index (BMI) Body weight Provider Name and Address Organization Details Last Updated DateTime 01/14/2025 182.88 cm 28.9 kg/m2 96470.17 g Rosalva Meneses [place] [facility] 01/14/2025 14:27:49 Date Recorded Body weight Body mass index (BMI) Body height Heart rate Oxygen saturation Oxygen saturation in Arterial blood by Pulse oximetry Systolic And Diastolic Provider Name and Address Organization Details Last Updated DateTime 4 83707.0 6 g 29.5 kg/m2 182.88 cm 96 /min 100 % 100 % 110/68 mm[Hg] Rosalva Meneses MA [place] - [facility] 4 12:49:44 Social History Question Answer Notes LastModified by Organizat ion Details LastModified Time Tobacco Smoking Status Former Smoker Rosalva Meneses, [facility], [place] - [facility] 06/03/2024 12:43:18 Do You Have An Advance Directive? No Information n ot available 06/03/2024 Are You Blind Or Do You Have Difficulty Seeing? No Information n ot available 06/03/2024 What Is Your Level Of Caffeine Consumption? Moderate Coffee Information not available 06/03/2024 In The 14 Days Before Symptom Onset, Have You Had Close Contact With A Laboratory-confirm ed COVID-19 While That Case Was Ill? No Information n ot available 06/03/2024 In The 14 Days Before Symptom Onset, Have You Had Close Contact With A Person Who Is Under Investigation For COVID-19 While That Person Was Ill? No Information not available 06/03/2024 Have You Been To An Area Known To Be High Risk For COVID-19? No Information not available 06/03/2024 Are You Deaf Or Do You Have Serious Difficulty Hearing? No Information not available 06/03/2024 What Type Of Diet Are You Following? REGULAR Information n ot available 06/03/2024 Are There Any Guns Present In Your Home? No Information not available 06/03/2024 What Was The Date Of Your Most Recent Tobacco Screening? 01/14/2025 Information not available 01/14/2025 What Is Your Current Pack Years? 10packyears Information not available 06/03/2024 What Is Your Relationship Status? Information not available 06/03/2024 Do You Use Your Seat Belt Or Car Seat Routinely? Yes Information not available 06/03/2024 Do You Have Smoke And Carbon Monoxide Detectors In Your Home? Yes Information not available 06/03/2024 How Much Tobacco Do You Smoke? 1 PPD Information not available 06/03/2024 Do You Use Sunscreen Routinely? Yes Information not available 06/03/2024 Has Tobacco Cessation Counseling Been Provided? No Information not available 06/03/2024 How Many Years Have You Smoked Tobacco? 20 Information not available 06/03/2024 Sex: Male Functional Status Question Answer Note LastModified by Organizat ion Details LastModified Time Do you use any illicit or recreational drugs? No Information not available 06/03/2024 Do you or have you ever used any other forms of tobacco or nicotine? No Information not available 06/03/2024 What is your level of alcohol consumption? Occasional Information not available 06/03/2024 Are you currently employed? Yes Information not available 06/03/2024 Are you able to care for yourself? Yes Information n ot available 06/03/2024 What is your exercise level? None Information not available 06/03/2024 Mental Status Question Answer Note LastModified by Organizat ion Details LastModified Time Do you feel stressed (tense, restless, nervous, or anxious, or unable to sleep at night)? [id number] Sleeping because of his work schedule Information not available 06/03/2024 Family History Relationship Description Onset Age of this Age Resolved Age Notes LastModified by Organization Details LastModified Time Father Malignant neoplasm of prostate mebyma Not available 2023 12:42:11 Father Hypertensive disorder mebyma Not available 2023 12:42:27 Maternal Grandfather Malignant neoplasm of prostate mebyma Not available 2023 12:42:11 Medical History Condition Response Other Y Immunizations Vaccine Type Date Status Note Provider Nam e and Address Organization Details Recorded Time Tdap 01/14/2025 completed Aissatou Osorio MA [facility] 01/14/2025 16:41:45 Past Encounters Encounter ID Performer Location Encounter Start Date Encounter Closed Date Diagnosis/Indication Diagnosis SNOMED-CT Code Diagnosis ICD10 Code Diagnosis Note [id number] Shae Farr MD [facility] (Adult Med) [address] [place] [phone] 06/03/2024 12:33:10 06/03/2024 14:07:58 Eruption 906541752 R21 Adult heal th examination 364490210 Z00.00 Screening for malignant neoplasm of prostate 895435787 Z12.5 Contact dermatitis 59395 004 L25.9 Hemorrhoids 04845985 K64 .9 [id number] Shae Farr MD [facility] - Tomás Reza [address] [place] [address] 10/06/2024 13:55:37 10/06/2024 14:38:22 Body mass index 30+ - obesity 263675069 Z68.30 Obesity 257674516 E66.9 Pain of le ft shoulder joint 9205558192 2861371 M25.305 [id number] Shae Farr MD [facility] (Adult Med) [address] [place] [phone] 01/14/2025 14:13:34 01/14/2025 15:07:37 Overweight in adulthood with body mass index of 25 or more but less than 30 578484025 E66.3 Z68.28 BMI 28.9 Erythrocytosis 466527733 D75.1 Sleep disorder 79983404 G47.9 Active immunization 3387 9002 Z23 Health Concerns Section Related Observation LastModified by Organization Detai ls LastModified Time None Recorded Concern Status LastModified by Organization Details LastModified Time None Recorded Advance Directives Directive N: Payers Insurance Date Sequence Insurance Name Policy Number Policy Godfrey Covered Member ID Godfrey Member ID Guarantor Name 01/13/2025 1 [employer] [id number] Jc Grullon [id number] Jc Grullon 06/17/2024 1 [employer] [place] [facility] ON OR AFTER 06/08/2020 (MEDICAID REPLACEMENT - HMO) Jc Grullon [id number] Jc Grullon Notes Date Note Type Note Provider Name and Address Organization Details Recorded Time 06/03/2024 text/html 48-year-old out working in the yard now erythematous itchy rash on his extremities.meds none allergies penicillin reaction unknown he was just told us a child he was allergic to it. Surgeries on his wrist family history of prostate cancer thinks his dad may had an abdominal aortic aneurysm. Socially . Occasional alcohol. Denies tobacco. He has had problems with hemorrhoids in his up-to-date on colonoscopies believe they have done some banding Shae Farr MD Attn: [address] [facility], [place], [address], [facility] 06/07/2024 20:25:35 10/06/2024 text/html fell a couple of weeks ago and messed up his shoulder hard to raise his arm above his head no numbness tingling no as no head pain no neck problems just not getting any better Shae Farr MD Attn: [address] [facility], [place], [address], [place] [facility] 10/12/2024 13:00:11
--- OUTSIDE RECORDS SUMMARY | 2025-01-15 23:46 | XMS_ITS | Data Portability ---
Author Organization [place] - [facility] [employer], Main Office Address [address] [place] [address] Care Team Providers Care Explosive Ordnance Disposal Specialist Name Role Phone CLAUS FARR Primary Care Provider CLAUS FARR Referring Provider [phone] Assessment Encounter Date Assessment Date Assessment LastModified by Organization Details LastModified Time 04/11/2023 04/11/2023 Will get an set up with a colonoscopy he has had ongoing blood work with his [facility] including PSA he tells me he will get me copies of those he says all his numbers have looked good follow-up with me in 1 year Not available 04/11/2023 21:35:21 08/18/2024 08/18/2024 This note is dictated and transcribed by [employer] Flu[employer] Direct [employer]. Funeral Planner variances may occur. Despite proofreading, typographical errors may occur. Occasional wrong-word or '[id number]' substitutions may have occurred due to the inherent limitations of voice recording. Read the chart carefully and recognize, using context, where substitutions have occurred. [email or web address] Not available 08/18/2024 16:10:02 Plan of Treatment Reminders Order Date Submit Date Provider Last Modified By Organization Details Last Modified Time Details Appointments None recorded. Lab None recorded. Referral colon & rectal surgeon referral 2022 023 priti Talley DO, [address], [address], [place], [address], 11:00:51 Procedures None recorded. Surgeries None recorded. Imaging None recorded. Medication Orders None recorded. Patient TargetsNo targets recorded. Patient InstructionsNo instructions recorded. Reason for Referral Colon & Rectal Surgeon Refer ral for Rectal discharge Referring Physician: Claus Farr, Internal Medicine, Encounter Date: 04/11/2023 Problems Name Problem SNOMED Code Status Onset Date Resolution Date Notes Provider Name and Address Organization Details Recorded Time Rectal hemorrhage 57067294 Active Not Available [facility] 3 14:48:49 Anemia 888115233 Active Not Available [facility] 3 14:48:49 Pain of wrist region 55133471 Active Not Available [facility] 3 14:48:49 Rectal discharge 966096258 Active 2022 Marielos Watson RN null, [facility] [employer] 3 15:42:33 Testosterone level below reference range 521879633 Active 2022 Claus Farr MD [address], [address] , [employer] [facility] [employer] 3 21:35:26 Onychomycosis of toenails 625423941 Active 2024 Vinod Mendiola DPM [address], [address] , [facility] 5 16:10:06 Problem Notes None recorded. Procedures Surgical History Date Name Laterality Status Provider Name and Address Organization Details Recorded Time Colonoscopy completed Not Available [facility] 09/06/2022 14:45:09 Imaging Results None recorded. Procedure Notes None recorded. Medical Equipment None Reported. Allergies Allergen ID Allergen Name Allergen Category Reaction Reaction Severity Criticality Documentation Date Start Date Code Code System Note Provider Name and Address Organization Details Recorded Time 06568 Product containin g penicilli n (product) medicatio n Not available Not available Not available 09/06/2022 11978 8001 SNOMED unkno wn Not Available [facility] 3 14:53:34 Medications Name Sig Start Date Stop Date Status Note LastModified by Organization Details LastModified Time hydrocortis one 150mg suppository INSERT ONE SUPPOSITO RY RECTALLY ONCE OR TWICE A DAY INCLUDING BEFORE BED 08/18 completed Not Available Not Available Not Available Proctosol HC 2.5 % rectal cream with applicator APPLY TO RECTAL AREA NEEDED TWICE DAILY 11/08 completed Not Available Not Available Not Available prednisone 10 mg tablet Take 2 tablets every day by oral route. 04/11 completed Not Available Not Available Not Available azithromyci n 250 mg tablet TAKE 2 TABLETS BY MOUTH TODAY, THEN TAKE 1 TABLET DAILY FOR 4 DAYS 04/11 completed Not Available Not Available Not Available prednisone 20 mg tablet TAKE 2 TABLETS BY MOUTH EVERY DAY FOR 5 DAYS 08/18 completed Not Available Not Available Not Available hydrocortis one acetate 25 mg rectal suppository INSERT 1 SUPPOSITO RY PER RECTUM TWICE DAILY NEEDED 11/08 completed Not Available Not Available Not Available scopolamine 1 mg over 3 days transdermal patch apply 1 patch 4 hrs before cruise change q 72 hrs 04/11 completed Not Available Not Available Not Available Suprep Bowel Prep Kit 17.5 gram-3.13 gram-1.6 gram oral solution USE DIRECTED 04/11 completed Not Available Not Available Not Available Proctosol HC 2.5 % topical cream perineal applicator APPLY A THIN LAYER TO THE AFFECTED AREA(S) BY TOPICAL ROUTE 2-4 TIMES DAILY active Not Available Not Available No t Available BinaxNOW COVID-19 Ag Self Test kit TEST DIRECTED TODAY 08/18 completed Not Available Not Available Not Available Clenpiq 10 mg-3.5 gram-12 gram/175 mL oral solution FOLLOW THE INSTRUCTI ON SHEET GIVEN BY THE D[facility] OFFICE. 08/18 completed Not Available Not Available Not Available Vitals Date Recorded Body height Body mass index (BMI) Body weight Heart rate Respiratory rate Body temperature Oxygen saturation Oxygen saturation in Arterial blood by Pulse oximetry Systolic And Diastolic Provider Name and Address Organization Details Last Updated DateTime 5 182.88 cm 28.5 kg/m2 35536.4 g 80 /min 16 /min 97.6 [degF] 97 % 97 % 120/80 mm[Hg] Kaity Atkinson [facility] 5 15:49:52 Date Recorded Body weight Body mass index (BMI) Body height Body temperature Heart rate Oxygen saturation Oxygen saturation in Arterial blood by Pulse oximetry Systolic And Diastolic Provider Name and Address Organization Details Last Updated DateTime 3 66751.3 2 g 29.8 kg/m2 182.88 cm 98.1 [degF] 100 /min 97 % 97 % 126/86 mm[Hg] Tracie Campos MA [place] [facility] 15:22:47 Social History Question Answer Notes LastModified by Organizat ion Details LastModified Time Tobacco Smoking Status Never Smoker Not Available [employer] 09/06/2022 14:45:04 Do You Have An Advance Directive? No [id number] Information not available 09/06/2022 What Is Your Level Of Caffeine Consumption? Moderate MIGRATION.[id number] Information not available 09/06/2022 How Much Tobacco Do You Chew? 2-4/day MIGRATION.104204 6381 Information not available 09/06/2022 In The 14 Days Before Symptom Onset, Have You Had Close Contact With A Laboratory-confirm ed COVID-19 While That Case Was Ill? No MIGRATION.671994 1408 Information not available 09/06/2022 In The 14 Days Before Symptom Onset, Have You Had Close Contact With A Person Who Is Under Investigation For COVID-19 While That Person Was Ill? No MIGRATION.423383 2721 Information not available 09/06/2022 What Type Of Diet Are You Following? REGULAR MIGRATION.092543 8487 Information not available 09/06/2022 What Is The Fluoride Status Of Your Home? Unknown MIGRATION.624863 3024 Information not available 09/06/2022 Are There Any Guns Present In Your Home? Yes MIGRATION.823660 6585 Information not available 09/06/2022 Do You Use Insect Repellent Routinely? No MIGRATION.485337 3265 Information not available 09/06/2022 Do You Have A Medical Power Of Engravings Polisher? No MIGRATION.746647 2669 Information not available 09/06/2022 What Was The Date Of Your Most Recent Tobacco Screening? 04/11/2023 Information not available 04/11/2023 What Is Your Relationship Status? MIGRATION.[id number] 4062 Information not available 09/06/2022 Do You Use Your Seat Belt Or Car Seat Routinely? Yes MIGRATION.728910 2917 Information not available 09/06/2022 Do You Have Smoke And Carbon Monoxide Detectors In Your Home? Yes MIGRATION.992209 1480 Information not available 09/06/2022 Do You Use Sunscreen Routinely? No MIGRATION.668100 3469 Information not available 09/06/2022 Have You Recently Traveled Abroad? No MIGRATION.162181 3728 Information not available 09/06/2022 Do You Have Any Dietary Restrictions? No MIGRATION.257773 1758 Information not available 09/06/2022 Sex: Unknown Functional Status Question Answer Note LastModified by Organizat ion Details LastModified Time Do you use any illicit or recreational drugs? No MIGRATION.91016 16559 Information not available 09/06/2022 Do you or have you ever used any other forms of tobacco or nicotine? Yes MIGRATION.63857 54092 Information not available 09/06/2022 What is your level of alcohol consumption? Occasional MIGRATION.15045 36332 Information not available 09/06/2022 Do you or have you ever used smokeless tobacco? 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 Never used electronic cigarettes MIGRATION.51385 16754 Information not available 09/06/2022 What is your exercise level? Heavy MIGRATION.86181 01481 Information not available 09/06/2022 Mental Status None recorded. Family History Relationship Description Onset Age of this Age Resolved Age Notes LastModified by Organization Details LastModified Time Father General health good [id number] Not available 09/06/2022 14:45:10 Mother General health good [id number] Not available 09/06/2022 14:45:10 Medical History Condition Response NERVE DISEASE N BLINDNESS N RHEUMATIC FEVER N KIDNEY STONES N BLADDER PROBLEMS N MRSA N OTHER # 1 N POLIO N LUNG DISEASE/DISORDER N HISTORY OF DRUG ABUSE N RADIATION / CHEMOTHERAPY N COPD N Other # 2 N BLOOD DISEASES N EAR OR HEARING PROBLEMS N MUMPS N SHINGLES N DEPRESSION (INCLUDING POST ) N BOWEL PROBLEMS N STROKE/TIA N ULCERS N BENIGN PROSTATIC HYPERPLASIA N MEASLES N HYPOTENSION N MYOCARDIAL INFARCTION N OBESITY N GERD/NAUSEA N ANEURYSM N URINARY/BLADDER/KIDNEY PROBLEMS N CORONARY ARTERY DISEASE (CAD) N ADDICTION CONCERNS N Impotence N ENDOMETRIOSIS N USE OF BLOOD THINNERS N SKIN PROBLEMS N GASTROINTESTINAL DISORDER N PERIPHERAL VASCULAR DISEASE N MUSCLE,JOINT OR BONE PROBLEMS N GASTROINTESTINAL BLEEDING N BLOOD CLOTS N ASTHMA N CATARACTS N ERECTILE DYSFUNCTION N VARICOSITIES N GI PROBLEMS N Low Testosterone N INFERTILITY N AIDS/HIV N CHEMOTHERAPY / RADIATION N LIVER DISEASE N MALE HYPOGONADISM N HYPERTENSION N Deficiency N TOURETTE'S N ANXIETY DISORDER N BLOOD TRANSFUSION N ANEMIA/BLOOD DISORDER Y CHRONIC EAR INFECTIONS N BRONCHITIS Y TUBERCULOSIS N GLAUCOMA N FOOT PROBLEM N DIVERTICULITIS N SLEEP APNEA N CHICKENPOX N INFECTIOUS DISEASE N PROSTATE N HEART ARRHYTHMIA N INSOMNIA N HIGH CHOLESTEROL / HYPERLIPIDEMIA N EYE PROBLEMS N HYPERTHYROIDISM N EDEMA N CHRONIC PAIN SYNDROME N HYPOTHYROIDISM N CAROTID BLOCKAGE N CONSTIPATION N BACK / NECK PROBLEMS N ATHEROSCLEROSIS N BREAST PROBLEMS N DIALYSIS N ECZEMA N OSTEOPOROSIS N ARTHRITIS N APPENDICITIS N DIABETES, TYPE N BAD TEETH N ENT N HEARTBURN / REFLUX N AUTISM SPECTRUM DISORDER (ASD) N HEPATITIS / LIVER DISEASE N GOUT N SLEEP DISORDER N ALZHEIMER'S DISEASE N Brain Problems N DEMENTIA N HERPES N SEIZURES/EPILEPSY N HEADACHES/MIGRAINES N VASCULAR DISEASE N PACEMAKER N Blood Disorder N DIZZINESS N HEART DISEASE/HEART PROBLEMS N KIDNEY DISEASE N MULTIPLE SCLEROSIS N CANCER: SPECIFY N CARDIAC ARRHYTHMIA N ATRIAL FIBRILLATION N Gall Stones N PULMONARY EMBOLISM N AUTOIMMUNE DISEASE N Past Encounters Encounter ID Performer Location Encounter Start Date Encounter Closed Date Diagnosis/Indication Diagnosis SNOMED-CT Code Diagnosis ICD10 Code Diagnosis Note [id number] Claus Farr MD [facility] [place] [facility] [address] [facility], [facility] [address] [place] [address] 04/11/2023 15:09:28 04/11/2023 15:44:57 Rectal discharge 311244073 R19.8 Testostero ne level below reference range 623450116 R89.1 [id number] Vinod Mendiola DPM [facility] [place] [address] [facility] [address] [place] [address] 08/18/2024 15:40:03 08/26/2024 14:46:58 Onychomycosis of toenails 362009538 B35.1 educated on treatment optionsaft er discussion and due to risks with associated oral medication s patient will return for a total nail avulsion of the affected toenails.F ollow-up for procedure Health Concerns Section Related Observation LastModified by Organization Detai ls LastModified Time None Recorded Concern Status LastModified by Organization Details LastModified Time None Recorded Advance Directives Directive N: Payers Insurance Date Sequence Insurance Name Policy Number Policy Godfrey Covered Member ID Godfrey Member ID Guarantor Name 08/26/2024 1 [employer] [id number] Jc Grullon [id number] Jc Grullon Notes Date Note Type Note Provider Name and Address Organization Details Recorded Time 04/11/2023 text/html 47-year-old low testosterone re-establishing allergies penicillin reaction unknown surgeries right wrist medicine testosterone injection from [facility] family history [facility] mother and father in their 70s socially does occasionally smoke a cigar no vape works Javier Farr MD [address], [place], [address], [facility] 04/11/2023 21:35:55 08/18/2024 text/html . Patient is 48-year-old male who presents the office with complaints toenail discoloration. Patient denies any treatment for this issue. Patient states he currently works at a male [employer] and wears steel toe boots. Patient states that his toenails have slowly gotten worse over the last few years. Patient states there is discoloration and dystrophy to the nails. Patient denies any redness or open wounds to the toes. Patient states he has a history of elevated liver enzymes as well as family history liver with liver cancer and cirrhosis. Vinod Mendiola DPM [address], [place], [address], [facility] 08/25/2024 09:04:42
[2025-01-16 01:44] VITALS: O2SAT 99
== END 2025-01-16 02:15 | disposition home or self-care (01) ==
PROVIDERS: Emergency Provider Physician Assistant; PCP Internal Medicine
DX: T78.40XA Allergy, unspecified, initial encounter (principal); X58.XXXA Exposure to other specified factors, initial encounter
CPT/HCPCS: 96374; 96375; 99284; J1200; J2919